=== PATIENT | male | born 2000 | race Caucasian/White ===

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

== ENCOUNTER 2019-03-15 18:36 | Emergency (ER) | payer BC ==
--- NOTE | 2019-03-15 20:13 | ER Document Report ---
ED Medical Screen (RME) - General Chief Complaint: Chest Pain Stated Complaint: CHEST PAIN Time Seen by Provider: 03/15/19 20:04 Primary Care Provider: YARED PERRY MD [Primary Care Provider] - Follow up as needed Notes: Patient is otherwise healthy 18-year-old male presents to the emergency department with multiple complaints. Patient voices approximately a week ago he started with left-sided chest pain. States it is now more so into armpit and left mid axillary region. Patient voices he feels very dizzy and lightheaded. While standing in triage he does get lightheaded, dizzy and has to sit down. Patient voices no nausea, vomiting, diarrhea. Discussed no recent sports activity. GENERAL: Alert, interacts well. No acute distress. LUNGS: Clear to auscultation bilaterally, no wheezes, rales, or rhonchi. No respiratory distress. HEART: Regular rate and rhythm. No murmur I have greeted and performed a rapid initial assessment of this patient. A comprehensive ED assessment and evaluation of the patient, analysis of test results and completion of the medical decision making process will be conducted by additional ED providers. I have specifically instructed the patient or family members with the patient to immediately return to any nursing staff should anything change in the patient's condition or with their chief complaint. This medical record was dictated with voice recognizing software. There may be grammatical, syntax errors that are unintended. TRAVEL OUTSIDE OF THE [place] IN LAST 30 DAYS: No - Related Data Allergies/Adverse Reactions: ceftriaxone [From Rocephin] Allergy (Verified 02/11/17 18:50) codeine Allergy (Verified 02/11/17 18:50) Past Medical History Renal/ Medical History: Denies: Hx Peritoneal Dialysis - Immunizations Immunizations up to date: Yes Hx Diphtheria, Pertussis, Tetanus Vaccination: Yes Physical Exam - Vital signs Vitals: Temp Pulse Resp BP Pulse Ox 98.0 F 81 24 H 151/85 H 99 03/15/19 18:52 03/15/19 18:52 03/15/19 18:52 03/15/19 18:52 03/15/19 18:52 Course - Vital Signs Vital signs: Temp Pulse Resp BP Pulse Ox 98.0 F 81 24 H 151/85 H 99 03/15/19 18:52 03/15/19 18:52 03/15/19 18:52 03/15/19 18:52 03/15/19 18:52 Doctor's Discharge - Discharge Referrals: YARED PERRY MD [Primary Care Provider] - Follow up as needed
[2019-03-15 20:49] LABS: APPEARANCE,URINE CLEAR; BILIRUBIN,URINE NEGATIVE (NEGATIVE); COLOR,URINE STRAW; GLUCOSE, URINE NEGATIVE (NEGATIVE); KETONES,URINE NEGATIVE (NEGATIVE); LEUKOCYTE ESTERASE,URINE NEGATIVE (NEGATIVE); NITRITE,URINE NEGATIVE (NEGATIVE); PROTEIN,URINE NEGATIVE (NEGATIVE); URINE SPECIFIC GRAVITY 1.009; UROBILINOGEN,URINE NEGATIVE mg/dL (<2.0)
[2019-03-15 20:54] LABS: ABSOLUTE LYMPHOCYTES (AUTO) 1.7 10^3/uL (0.5-4.7); ABSOLUTE MONOCYTES (AUTO) 0.5 10^3/uL (0.1-1.4); ABSOLUTE NEUT (AUTO) 11.8 10^3/uL (1.7-8.2); BASOPHILS % (AUTO) 0.3 % (0-2); EOSINOPHILS % (AUTO) 0.1 % (0-6); HEMATOCRIT 47.5 % (37.9-51.0); HEMOGLOBIN 16.3 g/dL (13.5-17.0); MEAN CORPUSCULAR HEMOGLOBIN 29.7 pg (27.0-33.4); MEAN CORPUSCULAR HGB CONC 34.2 g/dL (32.0-36.0); MEAN CORPUSCULAR VOLUME 87 fl (80-97); MONOCYTES % (AUTO) 3.8 % (3-13); PLATELET COUNT 248 10^3/uL (150-450); RED BLOOD COUNT 5.48 10^6/uL (4.35-5.55); RED CELL DISTRIBUTION WIDTH 13.6 % (11.5-14.0); SEGMENTED NEUTROPHILS % (AUTO) 83.8 % (42-78); TOTAL CELLS COUNTED % (AUTO) 100 %; WHITE BLOOD COUNT 14.1 10^3/uL (4.0-10.5)
--- NOTE | 2019-03-15 21:02 | RADIOLOGY REPORT (SQ) ---
EXAM DESCRIPTION: CLINICAL HISTORY: 18 years Male pain, SOB COMPARISON: 06/13/2016 FINDINGS: The cardiomediastinal silhouette appears unremarkable. No consolidating infiltrates or pleural effusions. No pneumothorax. IMPRESSION: No acute abnormality is identified.
[2019-03-15 21:13] LABS: ALBUMIN 5.4 g/dL (3.5-5.0); ALKALINE PHOSPHATASE 61 U/L (38-126); ANION GAP 13 (5-19); ASPARTATE AMINO TRANSFERASE 30 U/L (17-59); BILIRUBIN,DIRECT 0.2 mg/dL (0.0-0.4); BILIRUBIN,TOTAL 1.3 mg/dL (0.2-1.3); BLOOD UREA NITROGEN 7 mg/dL (7-20); CALCIUM 10.2 mg/dL (8.4-10.2); CARBON DIOXIDE 24 mmol/L (22-30); CHLORIDE 104 mmol/L (98-107); GLUCOSE 97 mg/dL (75-110); POTASSIUM 4.6 mmol/L (3.6-5.0); TOTAL PROTEIN 8.9 g/dL (6.3-8.2)
[2019-03-15 23:46] VITALS: BP 132/86
--- NOTE | 2019-03-16 00:14 | ER Document Report ---
ED General - General Chief Complaint: Chest Pain Stated Complaint: CHEST PAIN Time Seen by Provider: 03/15/19 20:04 Primary Care Provider: YARED PERRY MD [Primary Care Provider] - Follow up as needed TRAVEL OUTSIDE OF THE [place] IN LAST 30 DAYS: No - HPI Notes: Patient is a 18-year-old male who presents emergency department for evaluation of chest pain. Pain is been ongoing for just over a week. If first he tells me is intermittent, but then he states it might be constant, stating that he "just does not notice it" at some points. He states sometimes is substernal, some times it is to the lateral aspect of the left clavicle, and sometimes is in the axilla. Nothing seems to make it come on, nothing seems to make it go away. He states on occasion he has felt dizzy and lightheaded, felt as if he was going to pass out. This is not always associated with exacerbations of this chest pain, but he states it may have happened concurrently at times. He has not had any actual syncopal episodes. He denies any pain currently. - Related Data Allergies/Adverse Reactions: ceftriaxone [From Rocephin] Allergy (Verified 03/15/19 23:06) codeine Allergy (Verified 03/15/19 23:06) Home Medications: None Past Medical History - General Information source: Patient, Parent - Social History Smoking Status: Never Smoker Family History: DM, Hypertension, Other - Brother with WPW Patient has suicidal ideation: No Patient has homicidal ideation: No Pulmonary Medical History: Reports: Hx Asthma - Childhood Renal/ Medical History: Denies: Hx Peritoneal Dialysis Past Surgical History: Reports: Hx Tonsillectomy - Immunizations Immunizations up to date: Yes Hx Diphtheria, Pertussis, Tetanus Vaccination: Yes Review of Systems - Review of Systems Constitutional: No symptoms reported EENT: No symptoms reported Cardiovascular: See HPI Respiratory: No symptoms reported Gastrointestinal: No symptoms reported Genitourinary: No symptoms reported Musculoskeletal: No symptoms reported Skin: No symptoms reported Neurological/Psychological: No symptoms reported Physical Exam - Vital signs Vitals: Temp Pulse Resp BP Pulse Ox 98.0 F 81 24 H 151/85 H 99 03/15/19 18:52 03/15/19 18:52 03/15/19 18:52 03/15/19 18:52 03/15/19 18:52 - Notes Notes: This is a very pleasant 18-year-old male, anxious in appearance, visible tremor, but no acute distress. Vital signs reviewed, please refer to chart. Head is normocephalic, atraumatic. Pupils equal round, reactive to light. Neck is supple without meningismus. Heart is regular rate and rhythm. Lungs are clear to auscultation bilaterally. Abdomen is soft, nontender, normoactive bowel sounds throughout. Extremities without cyanosis, clubbing. Posterior calves are nontender. Peripheral pulses are equal. Skin is warm and dry. Patient is awake, alert, neurological exam is nonfocal. Course - Re-evaluation Re-evalutation: 03/16/19 00:11 Patient presents emergency department for evaluation. He was seen through triage. He had laboratory investigations, imaging, EKG. Laboratory investigations failed to reveal any significant abnormality. Troponins x2 were undetectable. EKG is unremarkable. I talked to the patient and his parents at length in regards to his symptoms. He has no risk factors for pulmonary embolus. His work-up here was unremarkable. His pain is atypical in nature. I did discuss the possibility of anxiety being in etiology. I did strongly e ncouraged him to follow-up with primary care, perhaps cardiology, as an arrhythmia could not be entirely ruled out. They voiced understanding to this and are amenable to discharge. - Vital Signs Vital signs: Temp Pulse Resp BP Pulse Ox 98.0 F 81 14 132/86 H 97 03/15/19 18:52 03/15/19 18:52 03/15/19 23:01 03/15/19 23:01 03/15/19 23:01 - Laboratory Result Diagrams: 03/15/19 20:20 03/15/19 20:20 Laboratory results interpreted by me: 03/15/19 03/15/19 03/15/19 20:20 20:20 20:20 WBC 14.1 H Lymph % (Auto) 12.0 L Absolute Neuts (auto) 11.8 H Seg Neutrophils % 83.8 H Total Protein 8.9 H Albumin 5.4 H Urine Blood SMALL H - Diagnostic Test Radiology reviewed: Reports reviewed - EKG Interpretation by Me Additional EKG results interpreted by me: 03/16/19 00:12 Sinus mechanism with rate of 84 bpm. Normal axis and intervals, no acute ST changes concerning for ischemia or infarction Discharge - Discharge Clinical Impression: Chest pain, Near syncope Condition: Stable Disposition: HOME, SELF-CARE Instructions: Chest Pain of Unclear Cause ([facility]), Near Syncopal Episode ([facility]) Additional Instructions: No clear cause was found for your symptoms here tonight. Work-up, including EKG and labs, imaging, were all unremarkable. Please follow-up with primary care next week, you should discuss further evaluation as discussed. Return to the ED with worsening or new concerning symptoms of any sort. Referrals: YARED PERRY MD [Primary Care Provider] - Follow up as needed
--- NOTE | 2019-03-16 12:47 | EKG REPORT ---
SEVERITY:- NORMAL ECG - SINUS RHYTHM : Confirmed by: Ingrid Tamayo 16-Mar-2019 12:45:32
== END 2019-03-16 00:23 | disposition home or self-care (01) ==
LOC: ER 18:36
DX: R07.9 Chest pain, unspecified (principal); R55 Syncope and collapse; R42 Dizziness and giddiness; R25.1 Tremor, unspecified; Z88.1 Allergy status to other antibiotic agents; Z88.6 Allergy status to analgesic agent; Z88.5 Allergy status to narcotic agent
CPT/HCPCS: 36415; 71046; 80053; 81001; 83735; 84484; 85025; 93005; 93010; 99285